=== PATIENT | male | born 1975 | race African-American/Black ===

== ENCOUNTER 2019-10-16 15:37 | Emergency (ER) | payer SELFPAY ==
[~2019-10-16] VITALS: Ht 180.3 cm; Wt 80.5 kg
[2019-10-16 15:40] VITALS: BP 122/71
--- NOTE | 2019-10-16 15:51 | PHYS DOC ---
Past Medical History Past Medical History: No Pertinent History Past Surgical History: Other Additional Past Surgical Histo: "OCD ablation"to R)knee. Smoking Status: Current Every Day Smoker Alcohol Use: Occasionally Drug Use: Marijuana General Adult EDM: Chief Complaint: SEXUALLY TRANSMITTED DISEASE HPI: HPI: Patient is a 44 year old male who presents with 3 days of penile discharge that is a white color. Denies any dysuria symptoms, back pain, Abdominal pain, nausea, vomiting, diarrhea, fever, rashes, sores. He states that he does not know of any when he is had sexual intercourse with having any sexually transmitted diseases. Patient denies any pain. Review of Systems: Review of Systems: : Denies dysuria. Penile Discharge [] Heart Score: Risk Factors: Risk Factors: DM, Current or recent (<one month) smoker, HTN, HLP, family history of CAD, obesity. Risk Scores: Score 0 - 3: 2.5% MACE over next 6 weeks - Discharge Home Score 4 - 6: 20.3% MACE over next 6 weeks - Admit for Clinical Observation Score 7 - 10: 72.7% MACE over next 6 weeks - Early Invasive Strategies Allergies: Allergies: Allergies Coded Allergies Type Severity Reaction Last Updated Verified No Known Drug Allergies 04/30/15 No Physical Exam: PE: Constitutional: Well developed, well nourished, no acute distress, non-toxic appearance. [] HENT: Normocephalic, atraumatic, bilateral external ears normal, oropharynx moist, no oral exudates, nose normal. [] Eyes: PERRLA, EOMI, conjunctiva normal, no discharge. [] Neck: Normal range of motion, no tenderness, supple, no stridor. [] Cardiovascular:Heart rate regular rhythm, no murmur [] Lungs & Thorax: Bilateral breath sounds clear to auscultation [] Abdomen: Bowel sounds normal, soft, no tenderness, no masses, no pulsatile masses. [] Skin: Warm, dry, no erythema, no rash. [] Back: No tenderness, no CVA tenderness. [] Extremities: No tenderness, no cyanosis, no clubbing, ROM intact, no edema. [] Neurologic: Alert and oriented X 3, normal motor function, normal sensory function, no focal deficits noted. [] Psychologic: Affect normal, judgement normal, mood normal. Normal Physical Exam[] EKG: EKG: [] Radiology/Procedures: Radiology/Procedures: [] Course & Med Decision Making: Course & Med Decision Making Pertinent Labs and Imaging studies reviewed. (See chart for details) No penile sores or rashes. No penile discharge seen at this time. No scrotal pain or swelling. Patient is treated for chlamydia and gonorrhea today. He is educated that you will get a phone call in 48 hours if his results are positive only. He is educated to have other sexual partners treated also. [] Dragon Disclaimer: Dragon Disclaimer: This electronic medical record was generated, in whole or in part, using a voice recognition dictation system. Departure Departure Impression: Primary Impression: Sexually transmitted disease Disposition: HOME, SELF-CARE Condition: STABLE Referrals: NO PCP (PCP) Patient Instructions: Sexually Transmitted Disease, [id number] Additional Instructions: Follow up with primary care provider if necessary. Have all other partners treated. Do not have intercourse for 7-10 days after treatment to assure infection is gone. MORENO ELLISON APRN Oct 16, 2019 15:51
[2019-10-16] MEDS ORDERED: AZITHROMYCIN 250 MG TABLET. PO ONE (16:00)
[2019-10-16] MEDS ORDERED: ONDANSETRON ODT 4 MG TAB.RAPDIS. PO ONE (16:00)
[2019-10-16] MEDS ORDERED: cefTRIAXone IM 250 MG VIAL IM ONE (16:00)
[2019-10-16 16:07] LABS: BILIRUBIN,URINE NEGATIVE (NEG); CLARITY,URINE CLEAR; COLOR,URINE YELLOW; NITRITE,URINE NEGATIVE (NEG); PH,URINE 5.5 (<5.0-8.0); PROTEIN,URINE NEGATIVE (NEG-TRACE); UROBILINOGEN,URINE 0.2 mg/dL (0.2 mg/dL)
[2019-10-16 16:19] LABS: BACTERIA,URINE 0 /HPF (0-FEW); RBC,URINE 0 /HPF (0-2); SQUAMOUS EPITHELIAL CELL,UR FEW /LPF; WBC,URINE 20-40 /HPF (0-4)
== END 2019-10-16 16:30 | disposition home or self-care (01) ==
LOC: ER 15:37
DX: A56.8 Sexually transmitted chlamydial infection of other sites (principal); R36.9 Urethral discharge, unspecified; F17.200 Nicotine dependence, unspecified, uncomplicated; F12.90 Cannabis use, unspecified, uncomplicated; Z98.890 Other specified postprocedural states
CPT/HCPCS: 81001; 87086; 87491; 87591; 96372; 99283; J0696; Q0162